=== PATIENT | male | born 1960 | race Caucasian/White ===

== ENCOUNTER 2017-08-15 05:23 | Inpatient (IN) ==
[2017-08-15] MEDS ORDERED: HEPARIN 5,000 UNIT/1 ML VIAL ONE ×3 (05:48→06:25)
[2017-08-15] MEDS ORDERED: CLOPIDOGREL 300 MG TABLET ONE (05:48)
[2017-08-15] MEDS ORDERED: NITROGLYCERIN DRIP 50 MG/250 ML BOTTLE IV ONE (05:55)
[2017-08-15] MEDS ORDERED: TICAGRELOR 90 MG TABLET ONE (06:02)
[2017-08-15] MEDS ORDERED: LIDOCAINE 1% 20 ML VIAL ONE (06:06)
[2017-08-15] MEDS ORDERED: ASPIRIN CHEW 81 MG TABLET PO ONE (06:21)
[2017-08-15] MEDS ORDERED: TIROFIBAN 5,000 MCG/100 ML PREMIX IV ONE (06:23)
[2017-08-15] MEDS ORDERED: TIROFIBAN 5,000 MCG/100 ML PREMIX IV SCH (06:31)
[2017-08-15] MEDS ORDERED: HEPARIN 5,000 UNIT/1 ML VIAL IV STA (06:49)
[2017-08-15] MEDS ORDERED: NITROGLYCERIN 2% OINT 1 INCH/GM PACK TOP ONE ×2 (06:50)
[2017-08-15] MEDS ORDERED: TICAGRELOR 90 MG TABLET PO STA (06:51)
[2017-08-15] MEDS ORDERED: CLOPIDOGREL 300 MG TABLET PO STA (06:52)
[2017-08-15] MEDS ORDERED: NITROGLYCERIN DRIP 50 MG/250 ML BOTTLE IV SCH (07:00)
[2017-08-15 07:12] LABS: Basophils % 0.2 % (0.0-0.8); Eosinophils % 0.2 % (0.00-10.9); Hematocrit 39.7 VOL% (42.0-52.0); Immature Granulocytes % 0.5 %; Lymphocytes # 0.9 10*3/uL (1.4-4.0); Lymphocytes % 4.7 % (21.2-54.2); Mean Corpuscular HGB Conc 35.3 GM/DL (32-36); Mean Corpuscular Hemoglobin 30 PG (27-34); Mean Corpuscular Volume 83.6 FL (87-102); Mean Platelet Volume 10.2 FL (9.6-12.0); Monocytes % 5.3 % (1.7-12.7); Neutrophils # 16.3 10*3/uL (1.4-7.4); Neutrophils % 89.1 % (38.7-73.9); Platelet Count 256 T/CUMM (130-400); Red Blood Count 4.75 MC/CUMM (3.8-5.5); Red Cell Distribution Width 14.7 % (9.3-17.3); White Blood Count 18.3 T/CUMM (4-12)
[2017-08-15] MEDS ORDERED: ACETAMINOPHEN/CODEINE 300-30 MG TABLET PO PRN (07:17)
[2017-08-15 07:18] LABS: Albumin 3.8 G/DL (3.4-5.0); Bilirubin,Total 0.9 MG/DL (0.2-1.0); CKMB % 6.7 %; Calcium 9.2 MG/DL (8.5-10.1); Magnesium 1.8 MG/DL (1.8-2.4); Risk Ratio 3.26; Total Protein 7.3 G/DL (6.4-8.3); VLDL CHOLESTEROL 16.4 MG/DL
[2017-08-15 07:19] LABS: Potassium 5.1 MMOL/L (3.5-5.1); Troponin I Only 4.82 NG/ML (0.00-0.045)
[2017-08-15] MEDS ORDERED: GLUCAGON 1 MG VIAL IM PRN (07:23)
[2017-08-15] MEDS ORDERED: ZALEPLON 5 MG CAPSULE PO PRN (07:23)
[2017-08-15] MEDS ORDERED: DEXTROSE 50% 25 GM/50 ML VIAL IV PRN (07:23)
[2017-08-15] MEDS ORDERED: MAGNESIUM SULF RIDER 4 GM in PREMIX 1 EACH IV PRN (07:23)
[2017-08-15] MEDS ORDERED: MAGNESIUM SULF RIDER 2 GM in PREMIX 1 EACH IV PRN (07:23)
[2017-08-15] MEDS ORDERED: ONDANSETRON 4 MG/2 ML VIAL IV PRN (07:23)
[2017-08-15 08:23] LABS: Giant Platelets Few; Hypochromasia 1+; Lymphocytes 7 % (20-55); Platelet Estimate Adequate; Segmented Neutrophils 90 % (50-85); Total Cells Counted 100
[2017-08-15] MEDS: NITROGLYCERIN 2% OINT 1 INCH/GM PACK TOP SCH ×3 (08:27→21:29)
[2017-08-15] MEDS: ACETAMINOPHEN 325 MG TABLET PO PRN ×3 (08:27→21:39)
[2017-08-15] MEDS: INSULIN REGULAR 100 UNIT/ML SUBCUT SCH ×4 (08:30→21:31)
[2017-08-15] MEDS: CARVEDILOL 3.125 MG TABLET PO SCH ×3 (09:27→21:29)
[2017-08-15] MEDS: PANTOPRAZOLE 40 MG TABLET PO SCH (09:29)
[2017-08-15] MEDS: SODIUM CHLORIDE 0.9% 1,000 ML IV SCH ×2 (12:12→19:19)
[2017-08-15 14:05] LABS: CKMB % 9.3 %
[2017-08-15 14:07] LABS: Troponin I Only 16.8 NG/ML (0.00-0.045)
[2017-08-15] MEDS ORDERED: LOVASTATIN 20 MG TABLET PO SCH (17:00)
[2017-08-15] MEDS: TICAGRELOR 90 MG TABLET PO SCH (21:29)
[2017-08-15 21:52] LABS: CKMB % 6.5 %
[2017-08-15 21:53] LABS: Troponin I Only 8.11 NG/ML (0.00-0.045)
[2017-08-16] MEDS: NITROGLYCERIN 2% OINT 1 INCH/GM PACK TOP SCH ×2 (03:41→09:11)
[2017-08-16 06:20] LABS: Basophils % 0.2 % (0.0-0.8); Eosinophils # 0.1 10*3/uL (0.0-0.87); Eosinophils % 0.6 % (0.00-10.9); Hematocrit 39.3 VOL% (42.0-52.0); Hemoglobin 13.4 GM/DL (14.0-18.0); Immature Granulocytes % 0.5 %; Immature Granulocytes Absolute 0.06 #; Lymphocytes % 7.8 % (21.2-54.2); Mean Corpuscular HGB Conc 34.1 GM/DL (32-36); Mean Corpuscular Hemoglobin 29 PG (27-34); Mean Corpuscular Volume 85.2 FL (87-102); Mean Platelet Volume 10.6 FL (9.6-12.0); Monocytes # 0.8 10*3/uL (0.11-0.8); Monocytes % 6.7 % (1.7-12.7); Neutrophils # 10.4 10*3/uL (1.4-7.4); Neutrophils % 84.2 % (38.7-73.9); Platelet Count 246 T/CUMM (130-400); Red Blood Count 4.61 MC/CUMM (3.8-5.5); White Blood Count 12.3 T/CUMM (4-12)
[2017-08-16 06:59] LABS: Albumin 3.2 G/DL (3.4-5.0); Bilirubin,Total 0.7 MG/DL (0.2-1.0); Calcium 8.6 MG/DL (8.5-10.1); Potassium 4.5 MMOL/L (3.5-5.1)
[2017-08-16 07:35] LABS: Troponin I Only 8.66 NG/ML (0.00-0.045)
[2017-08-16] MEDS: INSULIN REGULAR 100 UNIT/ML SUBCUT SCH ×2 (07:58→11:39)
[2017-08-16] MEDS ORDERED: ASPIRIN CHEW 81 MG TABLET PO SCH (09:00)
[2017-08-16 09:12] VITALS: BP 114/90
[2017-08-16] MEDS: TICAGRELOR 90 MG TABLET PO SCH (09:12)
[2017-08-16] MEDS: CARVEDILOL 3.125 MG TABLET PO SCH (09:12)
[2017-08-16] MEDS: PANTOPRAZOLE 40 MG TABLET PO SCH (09:12)
== END 2017-08-16 14:38 | disposition home or self-care (01) | DRG 282 ==
LOC: N.ED 05:23 → N.CVR 06:15 → N.TELEN 13:06
PROVIDERS: ADMIT Internal Medicine Cardiovascular Disease; ATTEND Internal Medicine Cardiovascular Disease
PROC: CLCCHCL (ICD-10-PCS; 2017-08-15 06:15)